=== PATIENT | male | born 1975 | race Caucasian/White ===

== ENCOUNTER 2022-04-30 06:34 | Emergency (ER) | payer SELFPAY ==
[2022-04-30] MEDS ORDERED: predniSONE 20 MG Tab PO ONE (06:51)
[2022-04-30] MEDS ORDERED: Albuterol/Ipratropium 3.0-0.5 MG/3 ML Neb Soln NEB ONE (06:51)
== END 2022-04-30 07:30 | disposition home or self-care (01) ==
LOC: FB.ED 06:34
DX: J45.901 Unspecified asthma with (acute) exacerbation (principal); Z88.5 Allergy status to narcotic agent
CPT/HCPCS: 94640; 99284; J7512; J7620